=== PATIENT | female | born 1980 | race Caucasian/White ===

== ENCOUNTER 2016-12-08 02:49 | Emergency (ER) | payer MEDICAID, OTHER ==
[2016-12-08 04:01] VITALS: BMI 24.7
[2016-12-08] MEDS ORDERED: Lactated Ringer's 1,000 ML IV SCH (04:02)
[2016-12-08 05:11] LABS: SQUAMOUS EPITHIAL 2 /hpf (0-5); URINE BILIRUBIN NEGATIVE (NEGATIVE); URINE BLOOD NEGATIVE (NEGATIVE); URINE CLARITY CLEAR (Clear); URINE COLOR YELLOW (YELLOW); URINE GLUCOSE (UA) NEG (Normal); URINE LEUKOCYTE ESTERASE NEG Leu/uL (Negative); URINE NITRATE NEGATIVE (NEGATIVE); URINE PROTEIN NEGATIVE (NEGATIVE); URINE UROBILINOGEN 0.2-1.0 mg/dL (0.2-1.0)
[2016-12-08 05:57] VITALS: BP 116/64; PULSE 78; RESP 16; TEMP 97.6
[2016-12-08 06:37] LABS: SPECIMEN COMMENT CLOUDY
--- NOTE | 2016-12-08 08:14 | OBHP ---
Datetime: 12/08/2016 05:35 IP Adm Impression: , intrauterine IP Chief Complaint Other: abdominal pain IP Admit Plan: Observation/Evaluation; Discharge home Admit Comment, IP Provider: 36 yo female at 26.2 weeks by 16 weeks US complains of abdomina l pain and sensation of contraction. pt reports she started to have abdominal pain on 12/07/15 around 5 pm along with hx constipation for few days. reports had bm last night after 4 days later. denies vagi nal bleeding, ruptured membrane. reports movement. Pt goes to care to see Dr Lew at [facility] in [place]. last visit was 11/30/16. past ob hx: x 2; one spontanenous in 2002 (unsure of weeks). 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 pmh: none pshx: none social hx: denies smoking, drinking alcohol or drug use. meds: vitamin and ?stool softener allegies: NKDA assessment: 36 yo female at 26.2 weeks by 16 weeks US complains of abdominal pain and sensation of co ntraction. abdominal pain Plan: continue monitor; 1 L iv fluid bolus given; mid stream UA is neg for UTI. fibron ectin sent and will f/u. Sultan Watt, PGY1 OB[facility] ADDENDUM: PT seen _ examined by me. Clarification of above-s: pt denies ctxs or cramps. she states pain in suprapubic and has been ongoing since Sun. She presents now for eval 2ndary to perisistance of pain . She denies pprom or vaginal bleedingo o: ffn neg i: Suprapubic pain No evidence of threatened ptl Constipation p: d/c home increase dietary fiber f/u with ob within 1wk ptl precautions Pelvic Type - PN: Adequate Extremities - PN: Normal Abdomen - PN: Normal Back - PN: Normal Breast - PN: Not Done Lungs - PN: Normal Heart - PN: Normal Thyroid - PN: Not Done Neurologic - PN: Normal HEENT - PN: Normal General - PN: Normal Presentation-Admit: Vertex FHR - Baseline A Provider: 140 Membranes, Provider: Intact Contraction Comments Provider: none Comments, ACOG Physical Exam: ultrasound: cephalic position Gestation - Est Wks by US: 26.2 EGA AdmitDate IP: 26.2 Vital Signs Provider: Reviewed IP Chief Complaint: Maternal discomfort; Other NICHD Variability Prov Fetus A: Moderate 6-25bpm FHR Category Provider Fetus A: Category I Dilatation, Provider: 0 Effacement, Provider: 0 Station, Provider: -4 Genitourinary Exam: Normal DTRs - PN: Not Done
== END 2016-12-08 08:30 | disposition home or self-care (01) ==
LOC: H.EROB2 02:49 → H.OB/GYN 03:58 → H.EROB 04:06 → H.EROB2 08:30
DX: O26.92 Pregnancy related conditions, unspecified, second trimester (principal); K59.00 Constipation, unspecified; Z3A.26 26 weeks gestation of pregnancy

== ENCOUNTER 2017-03-20 13:58 | Emergency (ER) | payer OTHER ==
[2017-03-20 14:47] VITALS: BMI 27.4
--- NOTE | 2017-03-20 17:58 | US ---
PROCEDURE: biophysical profile ultrasound HISTORY: post dates COMPARISON: None TECHNIQUE: Real-time transabdominal ultrasound examination of the gravid uterus was performed for the purposes of biophysical profile evaluation. FINDINGS: Single live intrauterine gestation with a cephalic presentation was identified. UTERUS: Heart rate: 139 bpm. age (Ultrasound estimated): 38 weeks 3 days Kenzie-gestational hemorrhage: None. Date of delivery (Ultrasound estimated) : Patient reports estimated date of delivery of 03/17/2017. Based on this ultrasound exam estimated date of delivery is 03/31/2017. Visualized cervix measures 3.7 centimeters. Placenta is fundal in location without evidence placenta previa. Estimated weight was 3396 grams. . Amniotic fluid index was 10.5. Biophysical profile 01/12. BPD 94 millimeters, head circumference 333 millimeters, abdominal circumference 331 mm, femur length 78 millimeters IMPRESSION: Biophysical profile 01/12. Single live intrauterine gestation with an estimated gestational age on the present examination of 30/8 weeks and 3 days.
--- NOTE | 2017-03-20 22:51 | OBHP ---
Datetime: 03/20/2017 15:49 IP Adm Impression: Term, intrauterine IP Admit Plan: Observation/Evaluation Admit Comment, IP Provider: 36 y/o female at 40.3 wks gestation with AREN on 03/17 based on a 16 wk U/S, as per patient, presents for evaluation of her as per the advice of her OB MD. She was told that since she is 4 days past due, she should go to [facility] or [facility] to get the baby checked out. Denies vaginal bleeding, abdominal pain or contractions, loss of fluid , dysuria, headache, n/v/d, or back pain. Reports good movement. Care: Seen by Dr. Lew. care unremarkable. GBS negative, B+ blood type. Last U /S was 02/23 and dates AREN on 03/14. Next appointment is 03/22 OBHx: 2 full term , no complications, 1 SAB 1st trimester Medical HX: none Surgical Hx: none Meds: PNV, Colace Allergies: NKDA Social: Denies smoking, alcohol, drugs Vitals: BP 119/74, Afebrile FHR: 140's, moderate variability, accelerations Physical Exam: General: NAD, comfortable Cardiac: RRR, no murmurs Resp: Clear to auscultation BL Abdomen: Gravid, NT Extremities: no pedal edema Assessment: IUP at 40.6 wks gestation, not in active labor, asymptomatic, here for evaluation on r ecommendations of her OB Plan: BPP, Continuous monitoring Discussed case with OB attending data processing systems consultant Dr. Alicia Hernandez, PGY1 Addendum Patient seen and evaluated at the bedside at 19:00, seen lying in bed comfortable. Denies any disc omfort. BPP reports 01/12, single live intrauterine gestation with EGA 38 weeks 3 days. Patient will be discharged and was advised to follow up with OB MD on 03/22 as scheduled. Labor precautions given. Bette PGY1 Addendum: I saw and examined the presentation. Patient without complaints at this time. heart tracing reassuring. Biophysical profile 8 out of 8. Patient has follow-up scheduled in 2 days with primary ph ysician. Patient discharged home with labor precautions. Pelvic Type - PN: Adequate Extremities - PN: Normal Abdomen - PN: Normal Back - PN: Normal Breast - PN: Normal Lungs - PN: Normal Heart - PN: Normal Thyroid - PN: Normal Neurologic - PN: Normal HEENT - PN: Normal General - PN: Normal EGA AdmitDate IP: 40.3 IP Chief Complaint: evaluation Genitourinary Exam: Normal DTRs - PN: Normal
[2017-03-20 23:39] VITALS: BP 110/72; PULSE 82; RESP 20; TEMP 98.9
== END 2017-03-20 19:00 | disposition home or self-care (01) ==
LOC: H.EROB2 13:58
DX: O48.0 Post-term pregnancy (principal); O47.1 False labor at or after 37 completed weeks of gestation; Z3A.40 40 weeks gestation of pregnancy